=== PATIENT | male | born 1960 | race Caucasian/White ===

== ENCOUNTER 2020-10-28 18:32 | Emergency (ER) | payer OTHER ==
[~2020-10-28] VITALS: Ht 182.9 cm; Wt 99.8 kg
[~2020-10-28 18:32] MED LIST: CEFPODOXIME PR200 MG PO; GLIPIZIDE ER5 MG PO; HYDROCORTISONE10 MG PO; IRON325 M1 PO; LEVOTHYROXINE75 MCG PO; NORCO 5-325 TA1 EACH PO; OMEPRAZOLE20 MG PO; SODIUM BICARBO325 MG PO; VENTOLIN HFA18 GM INH; ZESTRIL2.5 MG; ZOFRAN ODT4 MG PO
--- OUTSIDE RECORDS SUMMARY | 2020-10-28 18:44 | XMS ---
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 Abhay VISIT COUNT (12 MO.) 1 DANIELLE Mcknight TOTAL 1 NOTE: Visits indicate total known visits. ED/UCC VISIT TRACKING (12 MO.) 10/28/2020 18:33 DANIELLE Erazo OR TYPE: Emergency COMPLAINT: - DIARRHEA INPATIENT VISIT TRACKING (12 MO.) No inpatient visits to display in this time frame [email or web address]
--- NOTE | 2020-10-28 19:04 | EKG ---
[facility] [address] [place], [place] [address] Signed Sinus tachycardia Left axis deviation Possible Anterior infarct (cited on or before 13-DEC-2017) Abnormal ECG When compared with ECG of 13-DEC-2017 15:15, No significant change was found Confirmed by ABDOULAYE MAYER MD ([id number]) on 10/28/2020 7:04:08 PM Electronically Signed By: ABDOULAYE MAYER MD 10/28/20 1904 PATIENT NAME: BETSYYEHUDA PAUL Electrocardiogram DATE OF : 56 PHYSICIAN: ABDOULAYE MAYER MD REPORT #: [id number] REPORT IS CONFIDENTIAL AND NOT TO BE RELEASED WITHOUT AUTHORIZATION
[2020-10-28] MEDS ORDERED: SODIUM BICARBO650 MG PO (19:55)
== END 2020-10-29 00:33 | disposition short-term general hospital (02) ==
LOC: ED 18:32
DX: A41.9 Sepsis, unspecified organism (principal); R19.7 Diarrhea, unspecified; I95.9 Hypotension, unspecified; R09.02 Hypoxemia; R41.82 Altered mental status, unspecified; Z20.822 Contact with and (suspected) exposure to COVID-19; Z88.0 Allergy status to penicillin; Z79.899 Other long term (current) drug therapy
CPT/HCPCS: 36556; 36600; 51702; 71045; 71260; 74176; 80053; 81001; 82803; 83605; 83690; 83735; 84484; 85025; 87040; 87045; 87088; 93005; 93010; 94660; 99285-25; C9803; J1100; J1720; J1956; J3370; J7030; J7060; J7121; U0003

== ENCOUNTER 2023-06-17 19:39 | Emergency (ER) | payer OTHER ==
[~2023-06-17] VITALS: Ht 182.9 cm; Wt 93.0 kg
[~2023-06-17 19:39] MED LIST changes: +SODIUM BICARBO650 MG PO
[2023-06-17] MEDS ORDERED: TADALAFIL20 M1 (21:22)
[2023-06-17] MEDS ORDERED: FLUTICASONE-SAL12 G2 (21:22)
[2023-06-17] MEDS ORDERED: PRILOSEC OTC20 MG PO (21:23)
[2023-06-17 22:35] VITALS: BP 129/88
== END 2023-06-17 22:35 | disposition home or self-care (01) ==
LOC: ED 19:39
DX: E87.20 Acidosis, unspecified (principal); Z88.0 Allergy status to penicillin; Z79.890 Hormone replacement therapy; Z79.899 Other long term (current) drug therapy
CPT/HCPCS: 99283

== ENCOUNTER 2024-04-04 18:47 | Inpatient (IN) | payer MEDICARE ==
[~2024-04-04] VITALS: Ht 182.9 cm; Wt 92.8 kg
[2024-04-04 19:08] LABS: HEMATOCRIT 47.9 % (35.0-50.0); HEMOGLOBIN 15.8 g/dL (12.0-18.0); MCH 28.9 (27-36); MCV 87.5 fl (81-99); PLATELET COUNT 135 K/uL (140-440); RBC 5.48 M/ul (4.3-5.7); RDW 15.7 (10.5-15.0)
[2024-04-04] MEDS ORDERED: CEFTRIAXONE/SODIUM CHLORIDE 2 GM/100 ML PIGGYBACK IV ONE (19:15)
[2024-04-04] MEDS ORDERED: HYDROCORTISONE SOD SUCCINATE 100 MG/2 ML VIAL IV ONE (19:15)
[2024-04-04 19:20] LABS: BILIRUBIN, URINE NEGATIVE (negative); BLOOD/HGB, URINE MODERATE (Negative); KETONE, URINE NEGATIVE (Negative); LEUK ESTERASE, URINE MODERATE (negative); NITRITE, URINE POSITIVE (negative)
[2024-04-04 19:22] LABS: ALBUMIN 3.1 g/dL (3.4-5.0); ALBUMIN/GLOBULIN RATIO 0.66 (1.1-2.4); BILIRUBIN, TOTAL 2.6 ng/dL (0.2-1.0); BUN/CREATININE RATIO 11.67 (6.0-28.6); CREATININE, SERUM 4.71 mg/dL (0.70-1.30); PROTEIN, TOTAL 7.8 g/dL (6.4-8.2)
[2024-04-04] MEDS ORDERED: ondansetron HCL 4 MG/2 ML VIAL ONE (19:24)
[2024-04-04 19:25] LABS: BASOPHILS, MANUAL DIFF 2; EOSINOPHILS, MANUAL DIFF 2; LYMPHOCYTES, MANUAL DIFF 28; MONOCYTES, MANUAL DIFF 9; NEUTROPHILS, MANUAL DIFF 59
[2024-04-04 19:35] LABS: BACTERIA, URINE 2+ /hpf (negative); CASTS, URINE NONE SEEN \\lpf; CRYSTALS, URINE NONE SEEN (0-1+); EPITHELIAL CELLS, URINE SQUAMOUS 1+ /lpf (0-1+); WHITE BLOOD CELLS, URINE >50 /HPF (0-5)
[2024-04-04 19:36] LABS: COLLECTION TYPE, URINE CLEAN CATCH; REFLEX CULTURE, URINE Yes (No)
[2024-04-04] MEDS ORDERED: SODIUM CHLORIDE 0.9% 1,000 ML IV PRN ×3 (19:45→21:15)
[2024-04-04] MEDS ORDERED: ondansetron HCL 4 MG/2 ML VIAL IV ONE (19:45)
[2024-04-04] MEDS ORDERED: SODIUM CHLORIDE 0.9% 500 ML IV PRN (19:45)
[2024-04-04] MEDS ORDERED: ACETAMINOPHEN 500 MG TAB PO ONE (20:15)
[2024-04-04 20:44] LABS: LACTIC ACID, BLOOD 2.8 mmol/L (0.4-2.0)
[2024-04-04] MEDS ORDERED: SODIUM CHLORIDE 0.9% 1,000 ML IV SCH (23:15)
[2024-04-05] MEDS ORDERED: SODIUM CHLORIDE 0.9% 1,000 ML IV SCH ×2 (05:00→13:15)
--- NOTE | 2024-04-05 07:05 | NUR ---
REPORT FROM [facility] ED.
--- NOTE | 2024-04-05 08:31 | NUR ---
PATIENT SAT UP IN BED TO EAT BREAKFAST, HE REPORTS NO PAIN OR NAUSEA AT THIS TIME. HE ASKED FOR GREEN TEA, THIS HAS BEEN CALLED TO DIETARY TO BRING UP.
--- NOTE | 2024-04-05 10:06 | NUR ---
PATIENT RESTING IN BED ON HIS SIDE 100% OON ROOM AIR, HE HAS CONSUMED YOGURT AND 50% OF CREAM OF WHEAT. HE REPORTS NO FURTHER NAUSEA. PATIENT ASKED, "HAS MY COME BY OR CALLED?" THIS RN SAID, "NO, I HAVENT HEARD ANYTHING, WOULD YOU LIKE TO CALL HER ON THE ROOM PHONE?" HE SAID, "YES, PLEASE." THIS RN ASSISTED TO DIAL PATIENT'S , HE IS TALKING WITH HER AND VERBALIZED NO FURHTER NEEDS.
--- NOTE | 2024-04-05 11:15 | NUR ---
INTO SEE PATIENT. PATIENT STATES "I AM TRYING TO SLEEP CAN YOU COME BACK LATER." NO CM NEEDS AT THIS TIME.
[2024-04-05] MEDS ORDERED: IBLOOD GLUCOSE TEST STRIP 1 EA TEST VI SCH (12:00)
[2024-04-05] MEDS ORDERED: ondansetron HCL 4 MG/2 ML VIAL IV PRN (12:30)
[2024-04-05] MEDS ORDERED: ACETAMINOPHEN 325 MG TAB PO PRN (12:30)
--- NOTE | 2024-04-05 13:13 | NUR ---
ROUNDED WITH PATIENT, THIS RN IN ROOM, PATIENT'S IN ROOM, DISCUSSED PLAN OF CARE AND MEDICATIONS.
[2024-04-05] MEDS ORDERED: PROCHLORPERAZINE EDISYLATE 10 MG/2 ML VIAL IV PRN (13:15)
[2024-04-05] MEDS ORDERED: GLUCAGON,HUMAN RECOMBINANT 1 MG/ML VIAL SUB-Q PRN (13:15)
[2024-04-05] MEDS ORDERED: DEXTROSE 50% 50 ML SYR IV PRN ×2 (13:15)
[2024-04-05] MEDS ORDERED: DEXTROSE 5% 1,000 ML IV PRN (13:15)
[2024-04-05] MEDS ORDERED: IBLOOD GLUCOSE TEST STRIP 1 EA TEST XX PRN (13:15)
--- NOTE | 2024-04-05 13:28 | NUR ---
INTO SEE PATIENT. PERSONAL INFORMATION REVIEWED. PATIENT LIVES IN A MOBILE HOME. 4 STEPS TO GET INTO. DENIES ANY DIFFCULTY GETTING IN. HAS A WALKER IF NEEDED. NO OXYGEN OR CPAP. LIVES AT HOME WITH . WILL TAKE HIM HOME AT DISCHARGE. DENIES ANY DIFFCULTY PAYING UTILITIES OR OBTAINING FOOD. ESTABLISHING PATIENT WITH PCP HERE AT THE CLINIC. EMAIL SENT. NO OTHER CASE MANAGEMENT NEEDS AT THIS TIME.
[2024-04-05] MEDS ORDERED: HYDROCORTISONE 10 MG TAB PO SCH (13:32)
[2024-04-05] MEDS ORDERED: LEVOTHYROXINE SODIUM 88 MCG TAB PO SCH (13:32)
[2024-04-05] MEDS ORDERED: SODIUM BICARBONATE 650 MG TAB PO SCH (13:32)
--- NOTE | 2024-04-05 14:50 | NUR ---
PT NOT AVAILABLE FOR VISIT. PROVIDED PRAYER.
--- NOTE | 2024-04-05 15:11 | NUR ---
NEW ORDERS FROM FOR GI UPSET.
[2024-04-05] MEDS ORDERED: PANTOPRAZOLE SODIUM 40 MG/10 ML VIAL IV SCH ×2 (15:15→21:00)
[2024-04-05] MEDS ORDERED: LIDOCAINE & ANTACID 35 ML BTL PO PRN (15:15)
--- NOTE | 2024-04-05 16:07 | NUR ---
MED REC COMPLETE
--- NOTE | 2024-04-05 16:08 | NUR ---
PATIENT SITTING UP IN BED ALERT AND ORIENTED, HIS SPOUSE IS SITTING UP IN RECLINER READING ON HER TABLET. PATIENT REPORTS STOMACH STILL NAUSEA/UNEASY, PROTONIX AND GI COCKTAIL ADMINISTERED AT THIS TIME. PATIENT REQUESTS MORE WATER , NO OTHER REQUESTS AT THIS TIME.
[2024-04-05] MEDS ORDERED: INSULIN LISPRO 100 UNIT/ML ML SUB-Q SCH (17:00)
--- NOTE | 2024-04-05 17:18 | NUR ---
PATIENT TOLERATED APPLESAUCE AT THIS TIME WITHOUT EMESIS. PATIENTS IS LEAVING FOR THE NIGHT.
--- NOTE | 2024-04-05 17:35 | NUR ---
PATIENT ADMITTED FROM ED THIS AM, HE HAS HAD NAUSEA VOMITING X3 TODAY WITH EMESIS TOTAL OF 950ML. NEW ORDERS THROUGHOUT THE DAY, PATIENT NOW REPORTS FEELING BETTER AND HAS HAD APPLESAUCE AND NOT DEVELOPED NAUSEA OR EMESIS OF YET. HE HAS NOT BEEN ABLE TO TAKE HIS BICARB HOME MEDICATIONS ORDER TODAY DUE TO VOMITING. AGUILAR CATHETER PLACED IN ED, DRAINING CLOUDY YELLOW URINE FROM NEOBLADDER. PATIENT REPORTS NO PAIN OVER SHIFT PATIENT ADMINISTERED TYLENOL FOR LOW GRADE FEVER WITH FLUSHING AND SHIVERING.
--- NOTE | 2024-04-05 18:12 | NUR ---
UPDATED ON PATIENT PER GI UPSET IMPROVEMENT AND ON ROOM AIR SINCE ADMISSION. PER REQUEST.
[2024-04-05] MEDS ORDERED: CEFTRIAXONE/SODIUM CHLORIDE 2 GM/100 ML PIGGYBACK IV SCH (21:00)
[2024-04-05] MEDS ORDERED: HEParin SOD (PORCINE) 5,000 UNIT/ML SDV SUB-Q SCH (21:00)
[2024-04-05] MEDS ORDERED: MELATONIN 3 MG TAB PO PRN (21:00)
--- NOTE | 2024-04-05 21:45 | NUR ---
Pt awake, irritable mood but cooperative. On room air. lungs clear bilat, tele#[address] SR, denies CP, no sob. Abd soft BETTYE, LBM 2-3 days ago as per pt. moves all extremities. f/c patent not chronic, draining cloudy yellow urine. IV site RFA IVF infusing w/o problems, took all 6 tabs of NA Bicarb No c/o n/v at this time.No c/o pain
--- NOTE | 2024-04-05 22:00 | NUR ---
PATIENT CALLED STATING I MADE A MESS. NOTICED PATIENT'S BM IS DRIED THAT IS DIFFICULT TO WIPE OFF. APPEARS NOT RECENTLY. PATIENT STATED I THOUGHT ITS JUST A FART. NANCY CARE DONE. ATTENDS IN PLACE. WHOLE BED LINEN CHANGED. WARM BLANKET PROVIDED.
--- NOTE | 2024-04-05 23:19 | NUR ---
RESTING, EYES CLOSED, NO S/SX DISTRESS, ON ROOM AIR, IVF INFUSING W/O PROBLEMS, F/C PATENT, WAS INCONTINENT OF BOWEL EARLIER.
--- NOTE | 2024-04-06 01:58 | NUR ---
AWAKENS EASILY, ON ROOM AIR, NO C/O SOB. IVF INFUSING W/O PROBLEMS. TELE#[address], SR PULSE 80-99. ABD SOFT, HAD BM EARLIER ON SHIFT. F/C PATENT DRAINING YELLOW COLORED URINE WITH SEDIMENTS, PT STATED "I HAVE A ARLENE BLADDER". IRRITABLE MOOD BUT COOPERATIVE. ON ROOM AIR, CLEAR LUNGS,
[2024-04-06 05:32] LABS: BASOPHILS 0.5 % (0-2); EOSINOPHILS 2.3 % (0-6); HEMATOCRIT 32.7 % (35.0-50.0); LYMPHOCYTES 9.6 % (24-44); MCH 28.6 (27-36); MCHC 33.7 g/dl (30-36); MONOCYTES 7.1 % (0-12); NEUTROPHILS 80.5 % (39-80); PLATELET COUNT 65 K/uL (140-440); RBC 3.85 M/ul (4.3-5.7); RDW 15.3 (10.5-15.0)
[2024-04-06 05:48] LABS: ALBUMIN 2.1 g/dL (3.4-5.0); ALBUMIN/GLOBULIN RATIO 0.55 (1.1-2.4); ANION GAP 15.6 (7-21); BILIRUBIN, TOTAL 0.5 ng/dL (0.2-1.0); BUN/CREATININE RATIO 11.29 (6.0-28.6); CALCIUM 8.3 mg/dL (8.5-10.1); CREATININE, SERUM 4.16 mg/dL (0.70-1.30); MAGNESIUM 1.7 mg/dL (1.8-2.4); POTASSIUM 4.6 mmol/L (3.5-5.1); PROTEIN, TOTAL 5.9 g/dL (6.4-8.2)
--- NOTE | 2024-04-06 06:09 | NUR ---
On room air, tele#4 SR, denies CP. IVf infusing w/o problems. tolerating liquids well, fresh water and apple juice given on requests. f/c patent yellow urine with sediments. pt has a hx of teja bladder. Up to BRp, 1-2PA, shaky arms on first standing, sligth unsteadiness L leg. had a bm, did own care, then walked 1PA?FWW to reclainer chair. In reclainer chair, lege elevated. semi irritable mood at first, more pleasant after returning from BRP. alert and oriented to all, afebrile. call light and fluids at hands reach, watching TV
--- NOTE | 2024-04-06 06:41 | NUR ---
used call light, back to bed, slight unsteadiness L leg and involuntary arm tremors noted. tolerated well 1PA/FWW, back to bed,
--- NOTE | 2024-04-06 07:10 | NUR ---
PT RESTING IN BED WITH EYES CLOSED AND RESPIRATIONS EVEN AND UNLABORED. CALL LIGHT WITHIN REACH. REPORT RECEIVED FROM JYOTHI GREEN.
[2024-04-06] MEDS ORDERED: MAGNESIUM CHLORIDE 64 MG TABCR PO ONE (08:15)
--- NOTE | 2024-04-06 10:00 | NUR ---
ASSESSMENT COMPLETE. CRANBERRY JUICE AND WATER GIVEN PT REQUESTED. CALL LIGHT WITHIN REACH.
--- NOTE | 2024-04-06 10:10 | NUR ---
DR CRUZ NOTIFIED OF PT DEVELOPING A COUGH THIS MORNING, WHEEZING ON THE R) SIDE, AND COUGHING UP SMALL AMT OF GREEN SPUTUM.
[2024-04-06 11:16] LABS: BASOPHILS 0.4 % (0-2); HEMATOCRIT 34.8 % (35.0-50.0); HEMOGLOBIN 11.7 g/dL (12.0-18.0); LYMPHOCYTES 9.6 % (24-44); MCH 28.8 (27-36); MCHC 33.7 g/dl (30-36); MCV 85.4 fl (81-99); MONOCYTES 7.4 % (0-12); NEUTROPHILS 79.6 % (39-80); PLATELET COUNT 68 K/uL (140-440); RBC 4.08 M/ul (4.3-5.7); RDW 15.3 (10.5-15.0)
--- NOTE | 2024-04-06 11:30 | NUR ---
Spoke with Vincent. He cont. to live in [place] with his , Ami. They have 2 steps into the home. Pt does not use any DME. Pt self caths BID and buys he own catheters. He prefers to buy his own. I let him know medicare and the [facility] would cover this cost. Pt does not have pcp in [facility]. He uses Dr. Langford from the [facility]. He would like a pcp in [facility]. He was put on the list for [facility] and Dr. Aneudy Grigsby was requested as pt would prefer a male Dr. Pt is 70% service connected at the [place]. He denies any needs. Pt denies financial issues. He and are both retired. Home when ready for dc. Most likely 1-2 more days 8:30 meeting with
[2024-04-06 11:53] LABS: ABO O; ANTIBODY SCREEN NEGATIVE; RH POSITIVE
[2024-04-06] MEDS ORDERED: PHARMACY RENAL DOSE ADJUSTMENT 1 DOSE MISC PO SCH (12:00)
--- NOTE | 2024-04-06 12:59 | NUR ---
UR CLINICAL REVIEW: 2 MN FOR VERSALUS-MEETS INPT CRITERIA FOR UTI/MED MEDICARE INPT 04/05/24 @ 1305 ORDER MATCHES REG NO AUTH REQUIRED PER MEDICARE GUIDELINES DISCHARGE TO HOME WHEN STABLE
--- NOTE | 2024-04-06 13:16 | NUR ---
PT SITTING IN BED TALKING TO IN ROOM. PT DIDN'T LIKE HIS LUNCH, SO PROVIDED PT WITH MENU AND SANDWHICH BOX. NO OTHER REQUESTS AT THIS TIME. CALL LIGHT WITHIN REACH.
--- NOTE | 2024-04-06 15:03 | NUR ---
PT RESTING IN BED WITH IN ROOM. PT DOES NOT HAVE STAT LOCK ON HIS LEG FOR HIS AGUILAR CATHETER, PT REFUSES ONE AT THIS TIME. AGUILAR CATHETER DRAINING YELLOW URINE WITH SOME SEDIMENT, OUTPUT QUANTITY SUFFICIENT. NO REQUESTS AT THIS TIME. CALL LIGHT WITHIN REACH.
--- NOTE | 2024-04-06 16:01 | NUR ---
PT SITTING IN BED VISITING WITH HIS IN THE ROOM. PT STATES HE DOES NOT WANT TO AMBULATE RIGHT NOW BECAUSE HE HAS A SLIGHT HEADACHE. PT DENIES NEED FOR TYLENOL AT THIS TIME, STATES HE "JUST WANTS TO REST". INSTRUCTED PT TO CALL IF HE CHANGES HIS MIND. CALL LIGHT WITHIN REACH, WATER REFRESHED.
--- NOTE | 2024-04-06 16:33 | NUR ---
PATIENT CALLED TO GO FOR A WALK. ASSISTED PT WITH WALKER AND GAIT BELT DOWN TO THE FAR NURSES STATION AND BACK. PT TOLERATED DECENTLY BUT AKSED FOR A CHAIR NEAR THE END OF THE WALK. PT BACK IN BED, CALL LIGHT IN REACH. FAMILY MEMBER AT BEDSIDE. DENIES ANY OTHER NEEDS AT THIS TIME.
--- NOTE | 2024-04-06 17:13 | NUR ---
PT RESTING IN BED TALKING TO DAUGHTER AND . CALL LIGHT WITHIN REACH.
--- NOTE | 2024-04-06 18:42 | NUR ---
RESPIRATORY SWAB COLLECTED, LABELED, AND SENT TO LAB.
[2024-04-06 19:21] LABS: INFLUENZA B NAA NEGATIVE (NEGATIVE); RESPIRATORY SYNCYTIAL VIR NAA NEGATIVE (NEGATIVE)
--- NOTE | 2024-04-06 19:34 | NUR ---
REPORT RECEIVED FROM DAY SHIFT RN. PATIENT RESTING IN BED. DENIES NEEDS AT THIS TIME. CALL LIGHT REACH.
--- NOTE | 2024-04-06 21:17 | NUR ---
PATIENT RESTING IN BED. VS AND I&Os OBTAINED AND RECORDED. SCHEDULED MEDICATION ADMINSTERED. PATIENT PERFORMED AGUILAR CATH CARE INDEPENDENTLY. ASSESSMENT COMPLETE. PATIENT HAS NO FURTHER NEEDS. CALL LIGHT IN REACH.
--- NOTE | 2024-04-06 22:42 | NUR ---
MD LOMELI ON FLOOR. VERBAL ORDER FROM TO DC TELE.
--- NOTE | 2024-04-06 22:51 | NUR ---
VERBAL ORDER FROM MD TO DC TELE. TELE REMOVED FROM pt. ORDER UPDATED.
--- NOTE | 2024-04-06 22:57 | NUR ---
TELE REMOVED PER MD ORDER. PATIENT DENIES FURTHER NEEDS. CALL LIGHT IN REACH.
--- NOTE | 2024-04-07 00:03 | NUR ---
PATIENT RESTING IN BED WITH EYES CLOSED. RESPIRATIONS EVEN AND UNLABORED. CALL LIGHT IN REACH.
--- NOTE | 2024-04-07 01:20 | NUR ---
CALL LIGHT ANSWERED. SBA UP TO THE BATHROOM TO HAVE BOWEL MOVEMENT. EMPTIED AGUILAR BAG. PATIENT IS BACK IN BED. ICE WATER AND ICE CHIPS PROVIDED. NO FURTHER REQUEST AT THIS TIME.
--- NOTE | 2024-04-07 02:01 | NUR ---
PATIENT RESTING IN BED. RESPIRATIONS EVEN AND UNLABORED. CALL LIGHT IN REACH.
--- NOTE | 2024-04-07 04:25 | NUR ---
PATIENT RESTING IN BED. VS AND I&Os OBTAINED AND RECORDED. LIGHT YELLOW URINE NOTED IN AGUILAR CATHETER BAG. NEW BAG IV FLUID INFUSING PER ORDER. PATIENT HAS NO FURTHER NEEDS AT THIS TIME. CALL LIGHT IN REACH.
[2024-04-07 05:47] LABS: BASOPHILS 0.5 % (0-2); EOSINOPHILS 4.7 % (0-6); HEMATOCRIT 32.1 % (35.0-50.0); LYMPHOCYTES 16.1 % (24-44); MCH 29.2 (27-36); MCHC 34.3 g/dl (30-36); MCV 85.2 fl (81-99); NEUTROPHILS 70.7 % (39-80); PLATELET COUNT 85 K/uL (140-440); RBC 3.77 M/ul (4.3-5.7); RDW 14.8 (10.5-15.0)
[2024-04-07 06:05] LABS: ALBUMIN 2.1 g/dL (3.4-5.0); ALBUMIN/GLOBULIN RATIO 0.49 (1.1-2.4); ANION GAP 14.4 (7-21); BILIRUBIN, TOTAL 0.4 ng/dL (0.2-1.0); BUN/CREATININE RATIO 12.3 (6.0-28.6); CALCIUM 8.7 mg/dL (8.5-10.1); CREATININE, SERUM 3.17 mg/dL (0.70-1.30); POTASSIUM 4.4 mmol/L (3.5-5.1); PROTEIN, TOTAL 6.4 g/dL (6.4-8.2)
--- NOTE | 2024-04-07 07:43 | NUR ---
Patient bracelet not able to be scanned for BS check, manual number put in.
[2024-04-07] MEDS ORDERED: PANTOPRAZOLE SODIUM 40 MG TABEC PO SCH (09:00)
--- NOTE | 2024-04-07 09:19 | NUR ---
ASSISTED PT TO RESTROOOM 1PA FWW, PT TOLERATED WELL. STATES HE FEELS LIKE HE IS IMPROVING IN [place]. PT NOW UP IN CHAIR EATING BREAKFAST. CALL LIGHT WITHIN REACH. NO REQUESTS AT THIS TIME.
--- NOTE | 2024-04-07 10:26 | NUR ---
Patient returned to bed after sitting in their chair. Requested fresh ice water and a warm blanket. Catheter care done.
--- NOTE | 2024-04-07 12:08 | NUR ---
PT SITTING UP IN CHAIR WATCHING TV. IN ROOM. PT STATES HE IS FEELING A LOT STRONGER TODAY. CALL LIGHT WITHIN REACH.
--- NOTE | 2024-04-07 13:25 | NUR ---
PT SITTING ON THE SIDE OF THE BED EATING LUNCH. IN ROOM. NO REQUESTS AT THIS TIME. CALL LIGHT WITHIN REACH.
--- NOTE | 2024-04-07 14:22 | NUR ---
Patient returned to bed after sitting in their chair. is in the room. Shaina care wipes provided and care was done by patient. IV pump alarm was going off, storage battery chargerNORMA Quigley notified.
--- NOTE | 2024-04-07 15:00 | NUR ---
Spoke with Vincent. He denies needs. IMM letter signed this am.
--- NOTE | 2024-04-07 17:07 | NUR ---
PT RESTING IN BED WATCHING TV, NO REQUESTS AT THIS TIME. CALL LIGHT WITHIN REACH.
--- NOTE | 2024-04-07 18:39 | NUR ---
PT RESTING IN BED WATCHING TV, ICE WATER REFRESHED PER PT REQUEST. NO OTHER REQUESTS AT THIS TIME. CALL LIGHT WITHIN REACH.
--- NOTE | 2024-04-07 19:34 | NUR ---
REPORT RECIEVED FROM DAY SHIFT RN. PATIENT RESTING IN BED WATCHING TV. DENIES NEEDS AT THIS TIME. CALL LIGHT IN REACH.
--- NOTE | 2024-04-07 21:30 | NUR ---
VS, BS AND I&Os OBTAINED AND RECORDED. SCHEDULED MEDICATION ADMINISTERED. IV FLUSHES WNL. PATIENT STATES THAT HE PERFORMED AGUILAR CATH CARE INDEPENDENTLY. ASSESSMENT COMPLETE. PAIENT DENIES FURTHER NEEDS. CALL LIGHT IN REACH.
--- NOTE | 2024-04-07 23:29 | NUR ---
PATIENT RESTING IN BED ON BACK WITH EYES CLOSED. RESPIRATIONS EVEN AND UNLABORED. CALL LIGHT IN REACH.
--- NOTE | 2024-04-08 00:55 | NUR ---
PATIENT RESTING IN BED WITH EYES CLOSED. RESPIRATIONS EVEN AND UNLABORED. CALL LIGHT IN REACH.
--- NOTE | 2024-04-08 02:45 | NUR ---
PATIENT RESTING IN BED WITH EYES CLOSED. RESPIRATIONS EVEN AND UNLABORED. CALL LIGHT IN REACH.
--- NOTE | 2024-04-08 05:25 | NUR ---
PATIENT RESTING IN BED. VS AND I&Os OBTAINED AND RECORDED. FRESH ICE WATER PROVIDED. PATIENT DENIES NEEDS AT THIS TIME. CALL LIGHT IN REACH.
[2024-04-08 05:48] LABS: BASOPHILS 1.4 % (0-2); EOSINOPHILS 5.3 % (0-6); HEMATOCRIT 35.2 % (35.0-50.0); HEMOGLOBIN 11.9 g/dL (12.0-18.0); LYMPHOCYTES 18.7 % (24-44); MCH 28.9 (27-36); MCHC 33.9 g/dl (30-36); MCV 85.3 fl (81-99); MONOCYTES 9.8 % (0-12); NEUTROPHILS 64.8 % (39-80); PLATELET COUNT 161 K/uL (140-440); RBC 4.13 M/ul (4.3-5.7); RDW 15.2 (10.5-15.0)
[2024-04-08 06:04] LABS: ALBUMIN 2.3 g/dL (3.4-5.0); ALBUMIN/GLOBULIN RATIO 0.51 (1.1-2.4); ANION GAP 14.2 (7-21); BILIRUBIN, TOTAL 0.4 ng/dL (0.2-1.0); BUN/CREATININE RATIO 11.86 (6.0-28.6); CALCIUM 9.2 mg/dL (8.5-10.1); CREATININE, SERUM 2.95 mg/dL (0.70-1.30); MAGNESIUM 1.9 mg/dL (1.8-2.4); POTASSIUM 4.2 mmol/L (3.5-5.1); PROTEIN, TOTAL 6.8 g/dL (6.4-8.2)
--- NOTE | 2024-04-08 07:10 | NUR ---
VERBAL REPORT RECEIVED FROM NORMA CHAVEZ. PT RESTS IN BED WITH EYES CLOSED, RESP EVEN AND UNLABORED.
--- NOTE | 2024-04-08 09:21 | NUR ---
PT DENIES PAIN OR DISCOMFORT THIS AM. AGUILAR CATHETER REMOVED FOR DISCHARGE, TIP INTACT, PT TOLERATED WELL. IV REMOVED FOR DISCHARGE, TIP INTACT, GAUZE AND COBAN DRESSING APPLIED TO SITE. VSS. NO REQUESTS AT THIS TIME.
--- NOTE | 2024-04-08 11:00 | NUR ---
Pt discussed in IDT. Pt to dc today. Spoke with Vincent. No needs, home when arrives.
[2024-04-08 11:06] VITALS: BP 157/87
--- NOTE | 2024-04-08 11:15 | NUR ---
PT'S SPOUSE ARRIVES, PT DRESSES WITH ASSIST FROM SPOUSE. VSS. PT LEAVES MED-SURG VIA WHEELCHAIR ESCORTED BY SADIA GILMORE TO PRIVATE CAR DRIVEN BY SPOUSE.
== END 2024-04-08 11:15 | disposition home or self-care (01) | DRG 698 ==
LOC: ED 18:47 → MS 04-05 06:54
PROVIDERS: Emergency Medicine; ADMIT Family Medicine; ATTEND Student in an Organized Health Care Education/Training Program
DX: T83.598A Infection and inflammatory reaction due to other prosthetic device, implant and graft in urinary system, initial encounter (principal); A41.9 Sepsis, unspecified organism; R65.21 Severe sepsis with septic shock; N39.0 Urinary tract infection, site not specified; N17.9 Acute kidney failure, unspecified; E27.2 Addisonian crisis; F17.290 Nicotine dependence, other tobacco product, uncomplicated; Y73.2 Prosthetic and other implants, materials and accessory gastroenterology and urology devices associated with adverse incidents; B96.1 Klebsiella pneumoniae [K. pneumoniae] as the cause of diseases classified elsewhere; N18.9 Chronic kidney disease, unspecified; E11.9 Type 2 diabetes mellitus without complications; E03.9 Hypothyroidism, unspecified; D69.6 Thrombocytopenia, unspecified; Z85.51 Personal history of malignant neoplasm of bladder; Z87.440 Personal history of urinary (tract) infections; Z88.0 Allergy status to penicillin; Z79.890 Hormone replacement therapy; Z79.51 Long term (current) use of inhaled steroids; Z79.52 Long term (current) use of systemic steroids
CPT/HCPCS: 36415; 51702; 51798; 71045; 76705; 80053; 81001; 83605; 83735; 84100; 85025; 86850; 86900; 86901; 87040; 87077; 87088; 87186; 87502; 93005; 93010; 97161; 97165; 97530; 97535; 99285-25; A9270; J0696; J0780; J1644; J1720; J1815; J2405; J2470; J7030; J7040; U0002

== ENCOUNTER 2024-07-17 17:37 | Inpatient (IN) | payer MEDICARE, OTHER ==
[~2024-07-17] VITALS: Ht 182.9 cm; Wt 96.0 kg
[~2024-07-17 17:37] MED LIST changes: +ADVAIR HFA 230-12 GM INH; +BACTRIM DS TAB1 EACH PO; +FLUTICASONE-SAL12 G2; +GLIPIZIDE ER10 MG PO; +LANTUS SOL100 UNIT/1 SUB-Q; +LEVOTHYROXINE88 MCG PO; +TADALAFIL20 M1 PO; +VITAMIN D325 MCG PO
[2024-07-17] MEDS ORDERED: SODIUM CHLORIDE 0.9% 2,400 ML IV PRN (17:45)
[2024-07-17] MEDS ORDERED: CEFTRIAXONE SODIUM 2 GM in SODIUM CHLORIDE 0.9% 100 ML IV ONE (17:45)
[2024-07-17 17:52] LABS: HEMOGLOBIN 15.5 g/dL (13.7-17.5); MCH 28.1 PG (25.7-32.2); MCV 85.3 fL (79.0-92.2); PLATELET COUNT 108 K/uL (163-337); RBC 5.51 M/uL (4.63-6.08)
[2024-07-17 18:03] LABS: INR 1.14 (0.80-1.30); PROTIME 14.1 Sec (11.2-14.2)
[2024-07-17 18:05] LABS: PARTIAL THROMBOPLASTIN TIME 26.4 Sec (22.9-41.3)
[2024-07-17 18:11] LABS: ALBUMIN/GLOBULIN RATIO 0.65 (1.1-2.4); ANION GAP 15.3 (7-21); BILIRUBIN, TOTAL 3.8 mg/dL (0.2-1.0); BUN/CREATININE RATIO 14.53 (6.0-28.6); CALCIUM 9.3 mg/dL (8.5-10.1); CREATININE, SERUM 4.54 mg/dL (0.70-1.30); POTASSIUM 4.3 mmol/L (3.5-5.1); PROTEIN, TOTAL 7.6 g/dL (6.4-8.2)
[2024-07-17 18:22] LABS: BANDS, MANUAL DIFF 2; BASOPHILS, MANUAL DIFF 2; LYMPHOCYTES, MANUAL DIFF 20; MONOCYTES, MANUAL DIFF 11; NEUTROPHILS, MANUAL DIFF 65
[2024-07-17] MEDS ORDERED: ondansetron HCL 4 MG/2 ML VIAL IV PRN ×2 (18:30→22:30)
[2024-07-17 18:35] LABS: BILIRUBIN, URINE NEGATIVE (negative); BLOOD/HGB, URINE SMALL (Negative); KETONE, URINE NEGATIVE (Negative); NITRITE, URINE POSITIVE (negative); PH, URINE 7 (5-7)
[2024-07-17 18:36] LABS: COLLECTION TYPE, URINE CLEAN CATCH; LEUK ESTERASE, URINE POSITVE (negative)
[2024-07-17 18:37] LABS: BACTERIA, URINE 2+ /hpf (negative); CASTS, URINE NONE SEEN \\lpf; CRYSTALS, URINE NONE SEEN (0-1+); EPITHELIAL CELLS, URINE NONE SEEN /lpf (0-1+); REFLEX CULTURE, URINE Yes (No); WHITE BLOOD CELLS, URINE 41-50 /HPF (0-5)
[2024-07-17] MEDS ORDERED: NOREPINEPHRINE BITARTRATE 250 ML IV SCH (18:45)
[2024-07-17] MEDS ORDERED: SODIUM CHLORIDE 0.9% 1,000 ML IV ONE (19:45)
[2024-07-17 20:19] LABS: BUN/CREATININE RATIO 14.48 (6.0-28.6); CREATININE, SERUM 4.21 mg/dL (0.70-1.30); MAGNESIUM 1.6 mg/dL (1.8-2.4)
[2024-07-17 20:28] LABS: LACTIC ACID, BLOOD 1.4 mmol/L (0.4-2.0)
[2024-07-17] MEDS ORDERED: ACETAMINOPHEN 500 MG TAB PO ONE (21:00)
--- NOTE | 2024-07-17 21:21 | EKG ---
[facility] [address] [place] [address] Signed Sinus tachycardia Left anterior fascicular block Abnormal ECG When compared with ECG of 04-APR-2024 18:51, T wave inversion no longer evident in Lateral leads Confirmed by Rach Cruz MD () on 07/17/2024 9:21:04 PM Electronically Signed By: RACH CRUZ MD [id number] PATIENT NAME: BETSYYEHUDAAUDREY LINTON Electrocardiogram DATE OF : 56 PHYSICIAN: RACH CRUZ MD REPORT #: [id number] REPORT IS CONFIDENTIAL AND NOT TO BE RELEASED WITHOUT AUTHORIZATION
[2024-07-17] MEDS ORDERED: ACETAMINOPHEN 325 MG TAB PO PRN (22:30)
[2024-07-17] MEDS ORDERED: DEXTROSE 50% 50 ML SYR IV PRN ×2 (22:30)
[2024-07-17] MEDS ORDERED: IBLOOD GLUCOSE TEST STRIP 1 EA TEST XX PRN (22:30)
[2024-07-17] MEDS ORDERED: GLUCAGON,HUMAN RECOMBINANT 1 MG/ML VIAL SUB-Q PRN (22:30)
[2024-07-17] MEDS ORDERED: DEXTROSE 5% 1,000 ML IV PRN (22:30)
[2024-07-17] MEDS ORDERED: SODIUM CHLORIDE 0.9% 1,000 ML IV SCH (22:30)
[2024-07-17] MEDS ORDERED: PANTOPRAZOLE SODIUM 40 MG TABEC PO SCH (22:54)
--- NOTE | 2024-07-17 22:55 | NUR ---
to room 128 via lamar benites, lateral slide sheet transfer to bed, skin check wnl.
[2024-07-17] MEDS ORDERED: MAGNESIUM SULFATE 2 GM/50 ML BAG IV ONE (23:15)
[2024-07-17] MEDS ORDERED: INSULIN GLARGINE-YFGN 100 UNIT/ML ML SUB-Q SCH (23:15)
[2024-07-17] MEDS ORDERED: HYDROCORTISONE SOD SUCCINATE 100 MG/2 ML VIAL IV ONE (23:15)
[2024-07-17 23:17] VITALS: BP 94/54
[2024-07-17 23:32] VITALS: BP 84/49
[2024-07-18] VITALS (37 sets, daily range): BP systolic 89–155; BP diastolic 47–105
--- NOTE | 2024-07-18 00:33 | NUR ---
COMMENCE BLOCK CHARTING: REPORT RECEIVED FROM NORMA JOHNSON AT 2245. PATIENT ON 10MCG/MIN OF NOREPINEPHRINE AT TIME OF REPORT. PATIENT TRANSPORTED VIA GURNEY BY THIS RN TO CCU; ARRIVED APPROXIMATELY 22:55. PATIENT IS ALERT AND ORIENTED TO SELF AND PLACE BUT DROWSY AND FALLS ASLEEP DURING ASSESSMENT AND INTERVENTIONS. 2RN SKIN CHECK COMPLETED WITH NORMA CARSON. 23:25 SPO2 READING IN THE HIGH 80S ON 2LNC. INCREASED O2 FLOW TO 4L WITH IMPROVEMENT TO MID-90S. 23:30 PATIENT C/O OF NAUSEA. ZOFRAN GIVEN PER EMAR. NOREPINEPHRINE TITRATION CONTINUES PER MEDICATION FLOW SHEET. IV MAG HUNG AND HS INSULIN GIVEN WELL PO PROTONIX. PATIENT TOLERATED FLUIDS AND PASSED SWALLOW STUDY. PATIENT REPORTS DISCOMFORT, ASSISTED WITH POSITIONING WITH PILLOW SUPPORT. PATIENT DOES NOT FULLY PARTICIPATE IN ADMISSION ASSESSMENT QUESTIONS, OFTEN STATING "I DON'T KNOW" OR "ASK CHRIS". PATIENT IS SINUS TACH ON THE MONITOR WITH HR IN THE LOW 100S. RR 20-30. TEMP AGUILAR PROBE READING 100.4.
[2024-07-18] MEDS ORDERED: ALBUTEROL SULFATE 0.083% 3 ML VIAL INH PRN (01:45)
--- NOTE | 2024-07-18 03:03 | NUR ---
PATIENT WAKES TO THIS RN IN ROOM. REPORTS FEELING A LITTLE BETTER BUT TIRED. TEMP IS SLOWLY DECREASING, CURRENTLY 99.37 AGUILAR PROBE. NOREPI TITRATION CONTINUES.
--- NOTE | 2024-07-18 03:58 | NUR ---
DR. CRUZ UPDATED ON CURRENT VS TREND AND CONCERN FOR FLUID OVERLOAD POSTERIOR LOWER LOBES SOUND COURSE WITH FINE CRACKLES. ORDER RECEIVED TO REDUCE IVF TO 75ML/HR.
--- NOTE | 2024-07-18 04:20 | NUR ---
BOOSTED AND REPOSITIONED PATIENT WITH PILLOW SUPPORT. PATIENT DENIES PAIN OR NEEDS. CALL LIGHT IN REACH.
[2024-07-18 04:57] LABS: BASOPHILS 0.6 % (0.2-1.2); EOSINOPHILS 0.2 % (0.8-7.0); HEMATOCRIT 38.3 % (40.1-51.0); HEMOGLOBIN 12.6 g/dL (13.7-17.5); LYMPHOCYTES 7.9 % (21.8-53.1); MCH 28.4 PG (25.7-32.2); MCHC 32.9 g/dL (32.3-36.5); MCV 86.5 fL (79.0-92.2); MONOCYTES 4.7 % (5.3-12.2); NEUTROPHILS 85.3 % (34.0-67.9); PLATELET COUNT 87 K/uL (163-337); RBC 4.43 M/uL (4.63-6.08)
[2024-07-18 05:15] LABS: ALBUMIN 2.4 g/dL (3.4-5.0); ALBUMIN/GLOBULIN RATIO 0.62 (1.1-2.4); ANION GAP 18.9 (7-21); BILIRUBIN, TOTAL 2.7 mg/dL (0.2-1.0); BUN/CREATININE RATIO 13.17 (6.0-28.6); CALCIUM 7.7 mg/dL (8.5-10.1); CREATININE, SERUM 4.63 mg/dL (0.70-1.30); MAGNESIUM 2.1 mg/dL (1.8-2.4); PHOSPHORUS, INORGANIC 3.4 mg/dL (2.5-4.9); PROTEIN, TOTAL 6.3 g/dL (6.4-8.2)
[2024-07-18 05:52] LABS: ALBUMIN 2.5 g/dL (3.4-5.0); ALBUMIN/GLOBULIN RATIO 0.6 (1.1-2.4); ANION GAP 18.8 (7-21); BILIRUBIN, TOTAL 2.6 mg/dL (0.2-1.0); BUN/CREATININE RATIO 12.84 (6.0-28.6); CALCIUM 7.9 mg/dL (8.5-10.1); CREATININE, SERUM 4.75 mg/dL (0.70-1.30); PROTEIN, TOTAL 6.7 g/dL (6.4-8.2)
[2024-07-18 05:58] LABS: POTASSIUM 6.8 mmol/L (3.5-5.1)
[2024-07-18 05:59] LABS: POTASSIUM 6.9 mmol/L (3.5-5.1)
[2024-07-18] MEDS ORDERED: LEVOTHYROXINE SODIUM 88 MCG TAB PO SCH (06:00)
[2024-07-18] MEDS ORDERED: HYDROCORTISONE SOD SUCCINATE 100 MG/2 ML VIAL IV SCH (06:00)
--- NOTE | 2024-07-18 06:06 | NUR ---
LAB CALLED CRITICAL POTASSIUM LEVEL OF 6.9 OFF SPECIMEN THIS RN MABEL FROM CENTRAL LINE. STAT CMP REDRAW ORDERED AND LAB MABEL PERIPHERALLY. REPEAT K RESULTED AT 6.8 . CALL PLACED TO DR. CRUZ; LAB VALUES AND VS REVIEWED. DR CRUZ TO PUT IN ORDERS TO INCLUDE CALCIUM GLUCONATE.
[2024-07-18] MEDS ORDERED: Insulin Regular, Human 100 UNIT/ML ML IV ONE (06:15)
[2024-07-18] MEDS ORDERED: LACTATED RINGER'S 1,000 ML IV SCH (06:15)
[2024-07-18] MEDS ORDERED: Calcium Gluconate in NS 1,000 MG/50 ML BAG IV ONE (06:15)
[2024-07-18] MEDS ORDERED: SODIUM ZIRCONIUM CYCLOSILICATE 10 GM PACK PO SCH ×2 (06:30→09:00)
[2024-07-18] MEDS ORDERED: ALBUTEROL SULFATE 0.083% 3 ML VIAL INH ONE (06:30)
--- NOTE | 2024-07-18 06:45 | NUR ---
PATIENT UPDATED ON POTASSIUM RESULT AND MEDICATIONS TO TREAT. CALCIUM GLUCONATE INFUSING. IV INSULIN ADMINISTERED THROUGH RFA PERIPHERAL IV. NS D/C AND LR HUNG/INFUSING PER EMAR. TITUS PENDING PHARMACY APPROVAL. RT IN ROOM TO ADMINISTER BREATHING TX.
[2024-07-18] MEDS ORDERED: BUDESONIDE 0.5 MG/2 ML VIAL INH SCH (08:00)
[2024-07-18] MEDS ORDERED: INSULIN LISPRO 100 UNIT/ML ML SUB-Q SCH (08:00)
[2024-07-18] MEDS ORDERED: IBLOOD GLUCOSE TEST STRIP 1 EA TEST VI SCH ×2 (08:00→09:00)
[2024-07-18] MEDS ORDERED: ARFORMOTEROL TARTRATE 15 MCG/2 ML VIAL INH SCH (08:00)
--- NOTE | 2024-07-18 08:00 | NUR ---
Report received, assessment complete. Pt drowsy in bed, arouses intermittently. Afebrile, robbins temp probe. VSS on norepi gtt at this time, see flowsheet. CBG elevated- awaiting orders from hospitalist for insulin gtt. Able to titrate to 1L from 3, and then RALilibeth Robbins noted to have thick purulent sediment in urometer, no urine noted. aware.
[2024-07-18] MEDS ORDERED: Insulin Regular 100 Unit/100 Ml Bag IV SCH (09:00)
[2024-07-18] MEDS ORDERED: HEParin SOD (PORCINE) 5,000 UNIT/ML SDV SUB-Q SCH (09:00)
[2024-07-18] MEDS ORDERED: DEXTROSE 5% - NACL 0.45% 1,000 ML IV SCH (09:00)
[2024-07-18] MEDS ORDERED: NYSTATIN 500,000 UNITS/5 ML CUP PO SCH (09:00)
--- NOTE | 2024-07-18 09:15 | NUR ---
Insulin gtt initiated per order. Verified with 2nd RN.
--- NOTE | 2024-07-18 10:00 | NUR ---
Norepi gtt off at this time, BP stable with consistent MAP above 65. MD in to round, patient A+O, able to hold conversation and is agreeable to POC. Insulin gtt titrated per order. 25ml of purulent urine drained from robbins cath. Pt remains afebrile with VSS. Allowed 60gC diet, snacks and water provided, lunch ordered.
[2024-07-18 10:40] LABS: ALBUMIN 2.4 g/dL (3.4-5.0); ALBUMIN/GLOBULIN RATIO 0.52 (1.1-2.4); ANION GAP 19.3 (7-21); BILIRUBIN, TOTAL 1.3 mg/dL (0.2-1.0); BUN/CREATININE RATIO 12.68 (6.0-28.6); CALCIUM 8.3 mg/dL (8.5-10.1); CREATININE, SERUM 4.65 mg/dL (0.70-1.30); POTASSIUM 5.3 mmol/L (3.5-5.1)
[2024-07-18] MEDS ORDERED: PHARMACY RENAL DOSE ADJUSTMENT 1 DOSE MISC PO SCH (12:00)
--- NOTE | 2024-07-18 12:00 | NUR ---
Hourly CBG checks performed per protocol, scheduled solucortef administered. Pt cognition improving, no longer drowsy, alert and oriented x4. Insulin gtt titrated per order.
[2024-07-18 13:54] LABS: ALBUMIN 2.2 g/dL (3.4-5.0); ALBUMIN/GLOBULIN RATIO 0.55 (1.1-2.4); ANION GAP 15.3 (7-21); BILIRUBIN, TOTAL 0.8 mg/dL (0.2-1.0); BUN/CREATININE RATIO 12.58 (6.0-28.6); CALCIUM 8.1 mg/dL (8.5-10.1); CREATININE, SERUM 4.53 mg/dL (0.70-1.30); POTASSIUM 4.3 mmol/L (3.5-5.1); PROTEIN, TOTAL 6.2 g/dL (6.4-8.2)
--- NOTE | 2024-07-18 15:00 | NUR ---
Labs return, levels improved- Cristy held at this time d/t MD order. Nystatin administered. pt tolerates well.
--- NOTE | 2024-07-18 16:00 | NUR ---
Pt A+O. Remains afebrile. LSC, on RA. HRR. BP stable- no pressors required at this time. Pt had large BM on BSC, bed bath and linen/gown changed at this time. Martinez care complete. Martinez draining QS urine- cloudy with sediment noted. 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 Output significantly improved. Remains on IVF, insulin gtt per protocol.
[2024-07-18 17:59] LABS: ALBUMIN 2.1 g/dL (3.4-5.0); ALBUMIN/GLOBULIN RATIO 0.54 (1.1-2.4); BILIRUBIN, TOTAL 0.6 mg/dL (0.2-1.0); BUN/CREATININE RATIO 12.7 (6.0-28.6); CALCIUM 8.2 mg/dL (8.5-10.1); CREATININE, SERUM 4.33 mg/dL (0.70-1.30)
[2024-07-18] MEDS ORDERED: CEFTRIAXONE SODIUM 2 GM in SODIUM CHLORIDE 0.9% 100 ML IV SCH (18:00)
--- NOTE | 2024-07-18 20:00 | NUR ---
REPORT RECEIVED FROM NORMA CURIEL. PATIENT RESTING IN BED WHILE AWAKE. ENGAGED WITH NURSING STAFF, ATTEMPTED TO MAKE BETS ON RESULTS OF POC GLUCOSE. WHILE NURSING DID NOT ENGAGE IN BETS, PATIENT IS FAR MORE ALERT AND PARTICIPATING IN CARE THAN PREVIOUS SHIFT WITH PATIENT. CBG CHECKED AND INSULIN GTT INCREASED PER FLOWSHEET. CALL LIGHT IN REACH.
--- NOTE | 2024-07-18 20:26 | NUR ---
YEHUDA (AKA: PHILIPP) DENIES WEARING HOME OXYGEN OR A CPAP/BIPAP. PHILIPP STATED THAT HE BEGAN SMOKING AT THE AGE OF 15 AND QUIT AROUND 20 YEARS AGO (AROUND AGE 43). HE IS CURRENTLY ON ROOM AIR LAYING IN BED COMFORTABLY.
--- NOTE | 2024-07-18 20:43 | NUR ---
MEMORY CARE DIRECTOR DID CATH CARE.
--- NOTE | 2024-07-18 21:42 | NUR ---
BLOOD DRAWN AND SENT TO LAB. NEW STAT LOCK PLACED ON AGUILAR. PLAN OF CARE FOR THE SHIFT REVIEWED WITH PATIENT. DENIES QUESTIONS OR CONCERNS.
[2024-07-18 21:56] LABS: ALBUMIN/GLOBULIN RATIO 0.54 (1.1-2.4); ANION GAP 12.8 (7-21); BILIRUBIN, TOTAL 0.4 mg/dL (0.2-1.0); BUN/CREATININE RATIO 13.2 (6.0-28.6); CREATININE, SERUM 4.09 mg/dL (0.70-1.30); POTASSIUM 3.8 mmol/L (3.5-5.1); PROTEIN, TOTAL 5.7 g/dL (6.4-8.2)
--- NOTE | 2024-07-18 22:28 | NUR ---
REVIEWED CMP RESULTS WITH DR. CRUZ. ORDER RECEIVED TO D/C INSULIN GTT AND GIVE HS DOSES OF LANTUS AND SLIDING SCALE INSULIN; KEEP ON IVF OF LR @ 200ML/HR.
[2024-07-19] VITALS (18 sets, daily range): BP systolic 101–164; BP diastolic 67–92
--- NOTE | 2024-07-19 00:14 | NUR ---
PATIENT WAKES EASILY FOR ASSESSMENT. AGUILAR CONTINUES TO BE PATENT WITH CLEAR YELLOW URINE AND FLECKS OF MUCOUS. PATIENT DENIES PAIN OR CONCERNS AT THIS TIME. CENTRAL LINE LUMENS FLUSHED, BLOOD RETURN NOTED IN DISTAL AND MEDIAL LUMENS; NO BLOOD RETURN IN PROXIMAL LUMEN BUT EASILY FLUSHES. IVF INFUSING WITHOUT DIFFICULTY.
[2024-07-19 01:51] LABS: ALBUMIN 1.9 g/dL (3.4-5.0); ALBUMIN/GLOBULIN RATIO 0.51 (1.1-2.4); ANION GAP 11.6 (7-21); BILIRUBIN, TOTAL 0.4 mg/dL (0.2-1.0); BUN/CREATININE RATIO 13.61 (6.0-28.6); CREATININE, SERUM 3.82 mg/dL (0.70-1.30); POTASSIUM 4.6 mmol/L (3.5-5.1); PROTEIN, TOTAL 5.6 g/dL (6.4-8.2)
[2024-07-19] MEDS ORDERED: Insulin Regular 100 Unit/100 Ml Bag IV SCH (03:45)
[2024-07-19] MEDS ORDERED: IBLOOD GLUCOSE TEST STRIP 1 EA TEST VI SCH (04:00)
--- NOTE | 2024-07-19 04:00 | NUR ---
DR. CRUZ REVIEWED LABS WITH THIS RN. ORDER RECEIVED TO PLACE PATIENT BACK ON INSULIN GTT. PATIENT UPDATED ON PLAN OF CARE. INSULIN GTT INITIATED PER FLOWSHEET WITH ALLI Ornelas RN WITNESS.
[2024-07-19 05:50] LABS: BASOPHILS 0.2 % (0.2-1.2); EOSINOPHILS 0.1 % (0.8-7.0); HEMATOCRIT 30.1 % (40.1-51.0); LYMPHOCYTES 6.5 % (21.8-53.1); MCH 28.2 PG (25.7-32.2); MCHC 33.2 g/dL (32.3-36.5); MONOCYTES 3.3 % (5.3-12.2); NEUTROPHILS 89.2 % (34.0-67.9); PLATELET COUNT 75 K/uL (163-337); RBC 3.54 M/uL (4.63-6.08)
--- NOTE | 2024-07-19 06:07 | NUR ---
LEFT FA PERIPHERAL IV REMOVED WITH TIP INTACT. SITE NOTED TO BE BLEEDING. INSULIN GTT TITRATTION CONTINUES.
[2024-07-19 06:11] LABS: ALBUMIN 2.1 g/dL (3.4-5.0); ALBUMIN/GLOBULIN RATIO 0.58 (1.1-2.4); ANION GAP 13.1 (7-21); BILIRUBIN, TOTAL 0.3 mg/dL (0.2-1.0); BUN/CREATININE RATIO 12.88 (6.0-28.6); CALCIUM 8.3 mg/dL (8.5-10.1); CREATININE, SERUM 3.88 mg/dL (0.70-1.30); POTASSIUM 4.1 mmol/L (3.5-5.1); PROTEIN, TOTAL 5.7 g/dL (6.4-8.2)
--- NOTE | 2024-07-19 08:30 | NUR ---
Assessment complete, patient resting in bed eating breakfast. COMMUNITY OUTREACH DIRECTOR in room to assist with BSC use, pt has BM. A+O, afebrile, HRR, VSS. LSC on RA. Martinez draining cloudy yellow urine. CMS intact. Pt on insulin gtt- see flowsheet. IVF infusing. Central line to R thigh intact, 3 lumen flush and all have blood return. Pt declines nystatin at this time wishes to take after breakfast. Call light in reach.
--- NOTE | 2024-07-19 11:32 | NUR ---
Hourly CBG taken per protocol. Pt up to chair with physical therapy, tolerates fair. Linen changed, room tidied. IVF infusing, new bag hung. pt orders lunch, has no further needs, robbins catheter draining WNL
[2024-07-19 12:31] LABS: ALBUMIN 2.2 g/dL (3.4-5.0); ALBUMIN/GLOBULIN RATIO 0.56 (1.1-2.4); ANION GAP 13.2 (7-21); BILIRUBIN, TOTAL 0.3 mg/dL (0.2-1.0); BUN/CREATININE RATIO 13.89 (6.0-28.6); CALCIUM 8.5 mg/dL (8.5-10.1); CREATININE, SERUM 3.67 mg/dL (0.70-1.30); POTASSIUM 4.2 mmol/L (3.5-5.1); PROTEIN, TOTAL 6.1 g/dL (6.4-8.2)
--- NOTE | 2024-07-19 13:47 | NUR ---
Pt back to bed after lunch. Pt off insulin gtt per MD order, recheck CBG at 1500, labs at 1800. IVF infusing. Martinez cath draining WNL. Pt Ami arrives to bedside. No needs at this time
--- NOTE | 2024-07-19 15:30 | NUR ---
medications reconciled using pharmacy records and patient interview
[2024-07-19 18:27] LABS: ALBUMIN/GLOBULIN RATIO 0.54 (1.1-2.4); ANION GAP 12.4 (7-21); BILIRUBIN, TOTAL 0.3 mg/dL (0.2-1.0); BUN/CREATININE RATIO 15.04 (6.0-28.6); CALCIUM 8.3 mg/dL (8.5-10.1); CREATININE, SERUM 3.39 mg/dL (0.70-1.30); POTASSIUM 4.4 mmol/L (3.5-5.1); PROTEIN, TOTAL 5.7 g/dL (6.4-8.2)
--- NOTE | 2024-07-19 18:41 | NUR ---
Patient labs drawn, chlorhexadine wipedown complete, central line intact. VSS. IV ABX infusing. Pt robbins emptied, clear yellow urine with small amount sediment noted. Pt A+O, LSC on RA, HRR. Dinner tray cleared. Pt has no further needs at this time. Awaiting lab results
--- NOTE | 2024-07-19 19:02 | NUR ---
SS insulin administered per order after discussion of care with MD. pt updated on POC. Pt has very minimal understanding of insulin use, this RN educates regarding SS/LA insulin uses and CBG checks, A1C interpretation etc. Pt expresses desire to be out of ICU. Agreeable to POC however. No needs at this time.
--- NOTE | 2024-07-19 19:37 | NUR ---
REPORT RECEIVED FROM NORMA CURIEL. RT IN ROOM ADMINISTERING BREATHING TX WHILE PATIENT WATCHES TV. CALL LIGHT IN REACH.
[2024-07-19] MEDS ORDERED: INSULIN GLARGINE-YFGN 100 UNIT/ML ML SUB-Q SCH (21:00)
[2024-07-19] MEDS ORDERED: HYDROCORTISONE SOD SUCCINATE 100 MG/2 ML VIAL IV SCH (21:00)
--- NOTE | 2024-07-19 21:05 | NUR ---
HS MEDICATION GIVEN PER EMAR. EDUCATION PROVIDED ON INCREASED DOSE OF LANTUS AND SLIDING SCALE INSULIN. AGUILAR REMAINS PATENT WITH DILUTE YELLOW OUTPUT. PATIENT WISHES TO REST TONIGHT. BLINDS CLOSED AND LIGHTS DIMMED FOR COMFORT. REVIEWED PLAN OF CARE FOR THE SHIFT. PATIENT AGREEABLE AND VERBALIZES UNDERSTANDING.
--- NOTE | 2024-07-19 22:20 | NUR ---
PATIENT RESTING IN BED WITH EYES CLOSED. HR IN THE 60S, SINUS RHYTHM ON MONITOR. RR 25, SPO2 94% RA.
--- NOTE | 2024-07-19 23:57 | NUR ---
PATIENT WAKES FOR ASSESSMENT AND BLOOD DRAW. DENIES PAIN, NEEDS OR CONCERNS.
[2024-07-20] VITALS (12 sets, daily range): BP systolic 112–154; BP diastolic 71–94
[2024-07-20 00:13] LABS: ALBUMIN/GLOBULIN RATIO 0.56 (1.1-2.4); ANION GAP 10.9 (7-21); BILIRUBIN, TOTAL 0.3 mg/dL (0.2-1.0); BUN/CREATININE RATIO 14.28 (6.0-28.6); CALCIUM 8.3 mg/dL (8.5-10.1); CREATININE, SERUM 3.22 mg/dL (0.70-1.30); POTASSIUM 3.9 mmol/L (3.5-5.1); PROTEIN, TOTAL 5.6 g/dL (6.4-8.2)
--- NOTE | 2024-07-20 00:28 | NUR ---
NEW BAG LR HUNG AND INFUSING. PATIENT RESTING IN BED WHILE WATCHING TV. CALL LIGHT IN REACH.
--- NOTE | 2024-07-20 03:53 | NUR ---
PATIENT RESTING IN BED WITH EYES CLOSED; APPEARS TO BE IN NAD. SR TO SB ON MONITOR WITH HR 50-60S AT REST. SPO2 93% RA. CALL LIGHT IN REACH.
[2024-07-20 05:20] LABS: BASOPHILS 0.5 % (0.2-1.2); EOSINOPHILS 1.2 % (0.8-7.0); HEMATOCRIT 29.9 % (40.1-51.0); HEMOGLOBIN 9.7 g/dL (13.7-17.5); LYMPHOCYTES 13.2 % (21.8-53.1); MCH 28.5 PG (25.7-32.2); MCHC 32.4 g/dL (32.3-36.5); MCV 87.9 fL (79.0-92.2); MONOCYTES 4.1 % (5.3-12.2); NEUTROPHILS 80.4 % (34.0-67.9); PLATELET COUNT 98 K/uL (163-337)
[2024-07-20 05:35] LABS: ALBUMIN/GLOBULIN RATIO 0.56 (1.1-2.4); ANION GAP 10.3 (7-21); BILIRUBIN, TOTAL 0.3 mg/dL (0.2-1.0); BUN/CREATININE RATIO 13.88 (6.0-28.6); CALCIUM 8.2 mg/dL (8.5-10.1); CREATININE, SERUM 3.17 mg/dL (0.70-1.30); POTASSIUM 4.3 mmol/L (3.5-5.1); PROTEIN, TOTAL 5.6 g/dL (6.4-8.2)
--- NOTE | 2024-07-20 06:35 | NUR ---
DR. CRUZ UPDATED ON AM LAB RESULTS, OVERNIGHT UO AND BRADYCARDIA OVERNIGHT WHILE AT REST. ORDER RECEIVED TO REDUCE IVF TO 125ML/HR.
--- NOTE | 2024-07-20 08:00 | NUR ---
PT AWAKE AND RESTING IN BED WATCHING TV. REPORTS INCREASED APPETITE TODAY, EXCITED FOR BREAKFAST. PT DENIES PAIN OR ANY COMPLAINTS AT THIS TIME. AFEBRILE, VS STABLE. SS INSULIN COVERAGE ADMINISTERED. FRESH ICE WATER, SUGAR FREE JUICE PROVIDED WITH BREAKFAST TRAY.
--- NOTE | 2024-07-20 09:00 | NUR ---
100% BREAKFAST COMPLETE - PT CONTINUES TO DENY COMPLAINTS. ASSESSMENT COMPLETE. AGUILAR CARE COMPLETE. CURRENT PLAN OF CARE AND PLAN TO AWAIT MD ROUNDING, POTENTIAL DC CENTRAL LINE AND SHOWER TODAY. PT STATES UNDERSTANDING, AGREES WITH PLAN AND ENCOURAGED TO POTENTIAL DOWN GRADE TO MEDICAL STATUS TODAY.
--- NOTE | 2024-07-20 10:08 | NUR ---
PT WORKING WITH OT IN ROOM, AMBULATE TO BATHROOM TO PREFORM SELF CARES.
--- NOTE | 2024-07-20 11:03 | NUR ---
VISITED DURING SPIRITUAL CARE ROUNDS. PT SUPPORTED BY IN ROOM. BOTH IN OVERALL GOOD SPIRITS, NO IMMEDIATE NEEDS. ANTIQUE FURNITURE RESTORER PROVIDED SUPPORTIVE PRESENCE, HOSPITALITY, PRAYER, FACILITATED INTERACTION WITH THERAPY ANIMAL. PT AND EXPRESSED GRATITUDE.
--- NOTE | 2024-07-20 11:10 | NUR ---
PT RESTING IN CHAIR WATCHING TV WITH AT BEDSIDE. FRESH WATER PROVIDED. DENIES FURTHER NEEDS AT THIS TIME. CALL LIGHT IN REACH.
--- NOTE | 2024-07-20 11:57 | NUR ---
MD ROUNDING IN ROOM WITH PT AND PRESENT - ALL QUESTIONS ANSWERED AND UPDATED PLAN OF CARE REVIEWED. PT STATES UNDERSTANDING.
--- NOTE | 2024-07-20 12:26 | NUR ---
LUNCH PROVIDED TO PT WITH 7 UNITS INSULIN SS COVERAGE. PT SITTING IN CHAIR WATCHING TV. DENIES FURTHER NEEDS AT THIS TIME. CALL LIGHT IN REACH.
--- NOTE | 2024-07-20 13:09 | NUR ---
PT SALINE LOCKED TO PARTICIPATE IN PHYSICAL THERAPY CLIMBING STAIRS. 100% LUNCH EATEN. URINE REMAINS DILUTE WITH PURULANT MUCUS CLOTS, EMPTIED FOR GREATER THAN 1000ML.
--- NOTE | 2024-07-20 13:45 | NUR ---
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
--- NOTE | 2024-07-20 15:00 | NUR ---
central line dc'd per protocol per verbal order from md. Pt tolerated procedure well. tele on in anticipation of move to room 123.
--- NOTE | 2024-07-20 16:08 | NUR ---
REPORT GIVEN TO ALLI Velázquez RN - PT TRANSFERED IN BED TO ROOM 123. ALL BELONGINGS FOLLOWED.
--- NOTE | 2024-07-20 16:21 | NUR ---
RECIEVED REPORT FROM NORMA MCCONNELL WITH NORMA CARSON AND ASSISTED PT TO FLOOR. PT HAS CALL LIGHT IN HAND AND DENIES ANY NEEDS AT THIS TIME.
--- NOTE | 2024-07-20 18:14 | NUR ---
NEW BAG OF LR HANGING, RATE IS 75ML/HR.
--- NOTE | 2024-07-20 19:18 | NUR ---
RECEIVED REPORT FROM NORMA CARSON. PT RESTING IN BED. DENIES NEEDS OR CONCERNS AT THIS TIME.
[2024-07-20] MEDS ORDERED: HYDROCORTISONE 10 MG TAB PO SCH (21:00)
--- NOTE | 2024-07-20 21:00 | NUR ---
PT SITTING EOB. VSS. USES CALL LIGHT APPROPRIATELY. DENIES PAIN. LSC. DRY COUGH. HRR, TELE IN PLACE. HR 50'S AT REST. SCD'S PLACED. BTA, LBM REPORTED TODAY. AGUILAR CATH CLEAR YELLOW W/ SOME MUCOUS-LARGE AMT OF OUTPUT. RFA IV INFUSING LR @ 75MLS/HR. BG 181-COVERED W/ 5 UNITS SLIDING SCALE AND SCHED LANTUS. CALL LIGHT WITHIN REACH.
--- NOTE | 2024-07-20 21:31 | NUR ---
SCD'S PLACED. AGUILAR CARE DONE. DENIES FURTHER NEEDS AT THIS TIME.
--- NOTE | 2024-07-20 22:45 | NUR ---
PT AWAKE, PLAYING ON CELL PHONE. DENIES NEEDS AT THIS TIME.
[2024-07-21] VITALS (7 sets, daily range): BP systolic 134–156; BP diastolic 71–84
--- NOTE | 2024-07-21 01:14 | NUR ---
PT SLEEPING SOUNDLY, SLIGHTLY SNORING.
--- NOTE | 2024-07-21 02:13 | NUR ---
DX: UROSEPSIS. A&OX4. PLEASANT. BASELINE ST CATH'S AT HOME BID. AGUILAR IN PLACE. TELEMETRY-SB. IVF.
--- NOTE | 2024-07-21 03:37 | NUR ---
PT SLEEPING SOUNDLY. APPEARS COMFORTABLE.
--- NOTE | 2024-07-21 05:59 | NUR ---
PT AWAKE, REPORTS SLEEPING WELL EXCEPT FOR SCD'S. AGUILAR CATH LIGHT YELLOW W/ FEW MUCOUS, LARGE AMT UO. RIGHT THIGH DRSG W/ DRIED BLOODY DRNG. LAB IN TO DRAW BLOOD. NO FURTHER NEEDS AT THIS TIME.
[2024-07-21 06:05] LABS: BASOPHILS 0.9 % (0.2-1.2); EOSINOPHILS 2.9 % (0.8-7.0); HEMATOCRIT 32.1 % (40.1-51.0); HEMOGLOBIN 10.6 g/dL (13.7-17.5); LYMPHOCYTES 22.3 % (21.8-53.1); MCH 28.3 PG (25.7-32.2); MCV 85.8 fL (79.0-92.2); MONOCYTES 6.8 % (5.3-12.2); NEUTROPHILS 65.5 % (34.0-67.9); PLATELET COUNT 136 K/uL (163-337); RBC 3.74 M/uL (4.63-6.08)
[2024-07-21 06:20] LABS: ALBUMIN 2.3 g/dL (3.4-5.0); ALBUMIN/GLOBULIN RATIO 0.59 (1.1-2.4); ANION GAP 14.7 (7-21); BILIRUBIN, TOTAL 0.4 mg/dL (0.2-1.0); BUN/CREATININE RATIO 14.08 (6.0-28.6); CALCIUM 8.6 mg/dL (8.5-10.1); CREATININE, SERUM 2.84 mg/dL (0.70-1.30); POTASSIUM 3.7 mmol/L (3.5-5.1); PROTEIN, TOTAL 6.2 g/dL (6.4-8.2)
--- NOTE | 2024-07-21 07:30 | NUR ---
PT RESTING IN BED THIS MORNING, AWAKE AND WANTING HIS SCDS OFF, THIS RN ASSISTED HELPING REMOVE SCDS. IV FLUIDS INFUSING ORDERED. PT DENIES ANY NEEDS AT THIS TIME. CALL LIGHT WITHIN REACH. REPORT RECEIVED FROM NIGHT RN AT BEDSIDE.
--- NOTE | 2024-07-21 08:18 | NUR ---
NEW BAG OF LR@75 INFUSING. IV SITE WNL. NO OTHER NEEDS AT THIS TIME.
--- NOTE | 2024-07-21 08:55 | NUR ---
PT RESTING IN BED HAVING BREAKFAST, PT DID HAVE A COUGHING FIT AT THIS TIME BUT WAS ABLE TO RESOLVE ON HIS OWN. IV FLUIDS INFUSING. FRESH ICE WATER PROVIDED ALONG WITH MILK FOR BREAKFAST. IV SALINE LOCKED MD PRESENT AT THE BEDSIDE AT THIS TIME.
[2024-07-21] MEDS ORDERED: CEFUROXIME500 MG PO (10:04)
--- NOTE | 2024-07-21 10:50 | NUR ---
PT NOT AVAILABLE FOR VISIT. PROVIDED PRAYER.
--- NOTE | 2024-07-21 11:00 | NUR ---
IN TO SPEAK WITH JOE. HE STATES HE IS FEELING BETTER AND IS GOOD WITH GOING HOME SOON. PT LIVES IN A TRAILER. HAS 2 STEPS IN AND DOES WELL WITH AMBULATION. HE DOES NOT USE ANY DME, BUT DOES HAVE A WALKER IF NEEDED. NO FINANCIAL CONCERNS AT THIS TIME. DISCUSSED VISIT WITH OUTPATIENT DS FOR CATHETER EXCHANGE UNTIL HIS VISIT WITH UROLOGY IN AUGUST. PATIENT STATES HE HAS NOT TRANSPORTATION ISSUES. NO OTHER CASE MANAGEMENT CONCERNS AT THIS TIME. IMM LETTER COMPLETED DURING ASSESSMENT.
--- NOTE | 2024-07-21 12:33 | NUR ---
DISCHARGE INSTRUCTION REVIEWED WITH PT. CATHETER BAG CHANGED TO LEG BAG, PT PROVIDED A DRAIN BAG FOR NIGHT TIME USE. DID EDUCATE THAT WITH INCREASE UOP, PT MAY WANT TO UTILIZE THE DRAING BAG DURING THE DAY SO IT DOES NOT NEED EMPTYING SO FREQUENTLY, WAS PRESENT AT BEDSIDE AND UNDERSTAND CARE. EDUCATION FOR NANCY-CARE TO BE DONE MORNING/NIGHT, PT VERBALIZED UNDERSTANDING. LUNCH TRAY ARRIVED, DID PROVIDE PATIENT WITH INSULIN - SEE MAR. PT GETTING DRESSED AND WILL CALL FOR ASSISTANCE OUT WHEN DONE EATING. NAC INFORMED AND WELL HELP GET PATIENT OUT.
== END 2024-07-21 12:45 | disposition home or self-care (01) | DRG 698 ==
LOC: ED 17:37 → CCU 22:26 → MS 07-19 12:45
PROVIDERS: Emergency Medicine; Family Medicine; ADMIT Family Medicine; ATTEND Family Medicine
PROC: 3E03329 Introduction of Other Anti-infective into Peripheral Vein, Percutaneous Approach (ICD-10-PCS; principal; 2024-07-17)
PROC: 0T9B70Z Drainage of Bladder with Drainage Device, Via Natural or Artificial Opening (ICD-10-PCS; 2024-07-17)
PROC: 06HY33Z Insertion of Infusion Device into Lower Vein, Percutaneous Approach (ICD-10-PCS; 2024-07-17)
PROC: 3E033XZ Introduction of Vasopressor into Peripheral Vein, Percutaneous Approach (ICD-10-PCS; 2024-07-17)
DX: T83.511A Infection and inflammatory reaction due to indwelling urethral catheter, initial encounter (principal); A41.9 Sepsis, unspecified organism; R65.21 Severe sepsis with septic shock; N17.9 Acute kidney failure, unspecified; G93.40 Encephalopathy, unspecified; N13.30 Unspecified hydronephrosis; Z96.0 Presence of urogenital implants; R33.8 Other retention of urine; I44.4 Left anterior fascicular block; F17.290 Nicotine dependence, other tobacco product, uncomplicated; F12.90 Cannabis use, unspecified, uncomplicated; E11.22 Type 2 diabetes mellitus with diabetic chronic kidney disease; N18.9 Chronic kidney disease, unspecified; E87.5 Hyperkalemia; B96.89 Other specified bacterial agents as the cause of diseases classified elsewhere; R11.2 Nausea with vomiting, unspecified; E83.42 Hypomagnesemia; D69.59 Other secondary thrombocytopenia; K20.90 Esophagitis, unspecified without bleeding; E03.9 Hypothyroidism, unspecified; Z85.51 Personal history of malignant neoplasm of bladder; Z88.0 Allergy status to penicillin; Z79.899 Other long term (current) drug therapy; Z79.52 Long term (current) use of systemic steroids; Z79.890 Hormone replacement therapy; Z79.4 Long term (current) use of insulin; Z85.89 Personal history of malignant neoplasm of other organs and systems; Z87.898 Personal history of other specified conditions
CPT/HCPCS: 36415; 36592; 70450; 71045; 71250; 74176; 80053; 81001; 82565; 83036; 83605; 83735; 84100; 84520; 85025; 85610; 85730; 87088; 93005; 93010; 94640; 94644; 94760; 94799; 97116; 97161; 97165; 97530; 97535; A9270; C1751; J0696; J1720; J1815; J2405; J3475; J7030; J7121; J7605

== ENCOUNTER 2024-08-01 04:28 | Emergency (ER) | payer MEDICARE, OTHER ==
[~2024-08-01] VITALS: Ht 182.9 cm; Wt 90.0 kg
[~2024-08-01 04:28] MED LIST changes: +CEFUROXIME500 MG PO
--- OUTSIDE RECORDS SUMMARY | 2024-08-01 04:32 | XMS ---
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 Abhay VISIT COUNT (12 MO.) 3 [facility] TOTAL 3 NOTE: Visits indicate total known visits. ED/UCC VISIT TRACKING (12 MO.) 08/01/2024 04:29 [facility] Emergency COMPLAINT: - CATHATER ISSUES 07/17/2024 17:37 [facility] TYPE: Emergency COMPLAINT: - ALTER LOC 04/04/2024 18:48 [facility] TYPE: Emergency COMPLAINT: - WEAKNESS INPATIENT VISIT TRACKING (12 MO.) 07/17/2024 22:[address] [facility] TYPE: Medical Surgical COMPLAINT: - SEPSIS, UTI DIAGNOSES: - Acute kidney failure, unspecified - Acute kidney failure, unspecified - Allergy status to penicillin - Allergy status to penicillin - Cannabis use, unspecified, uncomplicated - Cannabis use, unspecified, uncomplicated - Chronic kidney disease, unspecified - Chronic kidney disease, unspecified - Encephalopathy, unspecified - Encephalopathy, unspecified - Esophagitis, unspecified without bleeding - Esophagitis, unspecified without bleeding - Hormone replacement therapy - Hormone replacement therapy - Hyperkalemia - Hyperkalemia - Hypomagnesemia - Hypomagnesemia - Hypothyroidism, unspecified - Hypothyroidism, unspecified - Infection and inflammatory reaction due to indwelling urethral catheter, initial encounter - Infection and inflammatory reaction due to indwelling urethral catheter, initial encounter - Left anterior fascicular block - Left anterior fascicular block - 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 - skilled nursing (current) use of insulin - joint terminal attack controller (current) use of systemic steroids - skilled nursing (current) use of systemic steroids - Nausea with vomiting, unspecified - Nausea with vomiting, unspecified - Nicotine dependence, other tobacco product, uncomplicated - Nicotine dependence, other tobacco product, uncomplicated - Other exterminator (current) drug therapy - Other intermediate (current) drug therapy - Other retention of urine - Other retention of urine - Other secondary thrombocytopenia - Other secondary thrombocytopenia - Other specified bacterial agents as the cause of diseases classified elsewhere - Other specified bacterial agents as the cause of diseases classified elsewhere - Personal history of malignant neoplasm of bladder - Personal history of malignant neoplasm of bladder - Personal history of malignant neoplasm of other organs and systems - Personal history of malignant neoplasm of other organs and systems - Personal history of other specified conditions - Personal history of other specified conditions - Presence of urogenital implants - Presence of urogenital implants - Sepsis, unspecified organism - Sepsis, unspecified organism - Severe sepsis with septic shock - Severe sepsis with septic shock - Transient alteration of awareness - Type 2 diabetes mellitus with diabetic chronic kidney disease - Type 2 diabetes mellitus with diabetic chronic kidney disease - Unspecified hydronephrosis - Unspecified hydronephrosis 04/05/2024 06:54 [facility] TYPE: Medical Surgical COMPLAINT: - SEPSIS AND UTI DIAGNOSES: - Acute kidney failure, unspecified - Addisonian crisis - Allergy status to penicillin - Chronic kidney disease, unspecified - Hormone replacement therapy - Hypothyroidism, unspecified - Infection and inflammatory reaction due to other prosthetic device, implant and graft in urinary system, initial encounter - Klebsiella pneumoniae [K. pneumoniae] as the cause of diseases classified elsewhere - skilled nursing (current) use of inhaled steroids - skilled nursing (current) use of systemic steroids - Nicotine dependence, other tobacco product, uncomplicated - Personal history of malignant neoplasm of bladder - Personal history of urinary (tract) infections - Prosthetic and other implants, materials and accessory gastroenterology and urology devices associated with adverse incidents - Sepsis, unspecified organism - Severe sepsis with septic shock - Thrombocytopenia, unspecified - Type 2 diabetes mellitus without complications - Urinary tract infection, site not specified [email or web address]
[2024-08-01] MEDS ORDERED: LIDOCAINE 2% VISCOUS 6 ML SYR TOP ONE (04:45)
[2024-08-01 05:06] VITALS: BP 141/86
== END 2024-08-01 05:05 | disposition home or self-care (01) ==
LOC: ED 04:28
DX: T83.031A Leakage of indwelling urethral catheter, initial encounter (principal); Z79.4 Long term (current) use of insulin; Z79.51 Long term (current) use of inhaled steroids; Z79.899 Other long term (current) drug therapy; Z88.0 Allergy status to penicillin
CPT/HCPCS: 51702; 99283

== ENCOUNTER 2024-10-13 13:27 | Emergency (ER) | payer MEDICARE, OTHER ==
[~2024-10-13] VITALS: Ht 182.9 cm; Wt 93.5 kg
[2024-10-13] MEDS ORDERED: SODIUM CHLORIDE 0.9% 500 ML IV ONE (13:45)
[2024-10-13 13:46] LABS: BASOPHILS 1.3 % (0.2-1.2); EOSINOPHILS 4.7 % (0.8-7.0); LYMPHOCYTES 29.9 % (21.8-53.1); MCH 26.6 PG (25.7-32.2); MCHC 31.6 g/dL (32.3-36.5); MCV 84.1 fL (79.0-92.2); MONOCYTES 13.2 % (5.3-12.2); NEUTROPHILS 49.9 % (34.0-67.9); RBC 5.80 M/uL (4.63-6.08)
[2024-10-13 13:55] LABS: ALT (SGPT) 79.0 U/L (14-59); AST (SGOT) 61.0 U/L (15-37); GLOMERULAR FILTRATION RATE,EST 17.0 mL/min (>60); PROTEIN, TOTAL 8.5 g/dL (6.4-8.2); UREA NITROGEN 38.0 mg/dL (7-18)
[2024-10-13 14:12] LABS: BLOOD/HGB, URINE MODERATE (Negative); KETONE, URINE TRACE (Negative); LEUK ESTERASE, URINE MODERATE (negative); NITRITE, URINE POSITIVE (negative)
[2024-10-13 14:25] LABS: BACTERIA, URINE RARE /hpf (negative); CASTS, URINE NONE SEEN \\lpf; CRYSTALS, URINE NONE SEEN (0-1+); EPITHELIAL CELLS, URINE SQUAMOUS 1+ /lpf (0-1+); REFLEX CULTURE, URINE Yes (No)
[2024-10-13] MEDS ORDERED: SODIUM CHLORIDE 0.9% 1,000 ML IV PRN ×2 (14:30)
[2024-10-13 15:14] LABS: LACTIC ACID, BLOOD 1.2 mmol/L (0.4-2.0)
[2024-10-13] MEDS ORDERED: CEFDINIR300 MG PO (16:13)
[2024-10-13] MEDS ORDERED: ONDANSETRON ODT4 MG PO (16:13)
[2024-10-13 17:22] VITALS: BP 125/85
== END 2024-10-13 17:40 | disposition home or self-care (01) ==
LOC: ED 13:27
PROVIDERS: Emergency Medicine
DX: N39.0 Urinary tract infection, site not specified (principal); Z88.0 Allergy status to penicillin; Z79.890 Hormone replacement therapy; Z79.899 Other long term (current) drug therapy; Z79.4 Long term (current) use of insulin; Z79.84 Long term (current) use of oral hypoglycemic drugs
CPT/HCPCS: 36415; 80053; 81001; 83605; 83735; 85025; 87088; 96361; 96365; 96375; 96376; 99284-25; J0696; J2405; J7030; J7040

== ENCOUNTER 2024-12-21 18:48 | Emergency (ER) | payer OTHER, MEDICARE ==
[~2024-12-21] VITALS: Ht 182.9 cm; Wt 99.6 kg
[~2024-12-21 18:48] MED LIST changes: +CEFDINIR300 MG PO; +ONDANSETRON ODT4 MG PO
[2024-12-21] MEDS ORDERED: IBLOOD GLUCOSE TEST STRIP 1 EA TEST XX ONE (19:00)
[2024-12-21 19:05] LABS: BASOPHILS 1.4 % (0.2-1.2); EOSINOPHILS 5.9 % (0.8-7.0); LYMPHOCYTES 31.1 % (21.8-53.1); MCH 25.7 PG (25.7-32.2); MCHC 31.2 g/dL (32.3-36.5); MCV 82.4 fL (79.0-92.2); MONOCYTES 8.3 % (5.3-12.2); NEUTROPHILS 52.8 % (34.0-67.9); RBC 5.10 M/uL (4.63-6.08)
[2024-12-21 19:26] LABS: ALT (SGPT) 34.0 U/L (14-59); AST (SGOT) 23.0 U/L (15-37); GLOMERULAR FILTRATION RATE,EST 20.0 mL/min (>60); PROTEIN, TOTAL 7.0 g/dL (6.4-8.2); UREA NITROGEN 50.0 mg/dL (7-18)
[2024-12-21] MEDS ORDERED: LACTATED RINGER'S 1,000 ML IV ONE (20:00)
[2024-12-21 21:24] LABS: BLOOD/HGB, URINE TRACE-I (Negative); KETONE, URINE NEGATIVE (Negative); LEUK ESTERASE, URINE MODERATE (negative); NITRITE, URINE NEGATIVE (negative)
[2024-12-21 21:28] LABS: EPITHELIAL CELLS, URINE SQUAMOUS 1+ /lpf (0-1+)
[2024-12-21 21:29] LABS: BACTERIA, URINE 1+ /hpf (negative); CASTS, URINE NONE SEEN \\lpf; CRYSTALS, URINE NONE SEEN (0-1+); REFLEX CULTURE, URINE Yes (No)
[2024-12-21] MEDS ORDERED: BACTRIM DS TAB1 EACH PO (21:53)
[2024-12-21] MEDS ORDERED: TRIMETHOPRIM/SULFAMETHOXAZOLE 1 EA HOME.PACK PO ONE (22:00)
[2024-12-21 22:16] VITALS: BP 148/86
--- NOTE | 2024-12-22 07:42 | EKG ---
[facility] [address] [place] [address] Signed Normal sinus rhythm Left axis deviation Minimal voltage criteria for LVH, may be normal variant ( R in aVL ) Cannot rule out Anterior infarct , age undetermined Abnormal ECG When compared with ECG of 17-JUL-2024 17:42, Vent. rate has decreased BY 68 BPM T wave amplitude has decreased in Anterolateral leads Confirmed by Amaya Lomeli DO ([id number]) on 12/22/2024 7:41:44 AM Electronically Signed By: AMAYA LOMELI DO 12/22/24 0742 PATIENT NAME: YEHUDA MEYER Electrocardiogram DATE OF : 56 PHYSICIAN: AMAYA LOMELI DO REPORT #: [id number] REPORT IS CONFIDENTIAL AND NOT TO BE RELEASED WITHOUT AUTHORIZATION
--- NOTE | 2024-12-22 07:42 | EKG ---
[facility] [address] [facility] [place], [place] [address] Signed Normal sinus rhythm Left axis deviation Minimal voltage criteria for LVH, may be normal variant ( R in aVL ) Abnormal ECG When compared with ECG of 21-DEC-2024 18:54, (Unconfirmed) No significant change was found Confirmed by Fausto Lomeli DO ([id number]) on 12/22/2024 7:41:50 AM Electronically Signed By: FAUSTO LOMELI DO 12/22/24 0742 PATIENT NAME: BETSYYEHUDA PAUL Electrocardiogram DATE OF : 56 PHYSICIAN: FAUSTO LOMELI DO REPORT #: [id number] REPORT IS CONFIDENTIAL AND NOT TO BE RELEASED WITHOUT AUTHORIZATION
== END 2024-12-21 22:18 | disposition home or self-care (01) ==
LOC: ED 18:48
PROVIDERS: Emergency Medicine; Internal Medicine
DX: N39.0 Urinary tract infection, site not specified (principal); E11.22 Type 2 diabetes mellitus with diabetic chronic kidney disease; N18.9 Chronic kidney disease, unspecified; Z88.0 Allergy status to penicillin
CPT/HCPCS: 36415; 80053; 81001; 83735; 84484; 85025; 87077; 87088; 87186; 93005; 93010; 99284; A9270; J7121